=== PATIENT | male | born 1955 | race Caucasian/White ===

== ENCOUNTER 2018-04-01 12:10 | Observation (INO) | payer OTHER ==
[2018-04-01 12:50] LABS: PLATELET COUNT 166 10^3/uL (150-400)
[2018-04-01] MEDS ORDERED: ASPIRIN 81 MG CHEWABLE TAB PO ONE (13:04)
--- NOTE | 2018-04-01 13:05 | EDPHY ---
H & P Time Seen by Provider: 04/01/18 12:36 HPI/ROS: CHIEF COMPLAINT: Chest pain HISTORY OF PRESENT ILLNESS: 62-year-old man presents with his daughter who is nurse practitioner [place]. He has a history of hypertension hypercholesterolemia and a TIA. He tells me that when he was under anesthesia to get a cortisone injection in his neck he was told he might have had a silent heart attack in the past. He works up here in [place] although he lives down in [facility]. Today around 11:00 a.m. He started having left-sided chest discomfort which she describes as"not dull or sharp, but more of a throbbing sensation. It lasted for about half an hour and then went away. It was not associated with shortness of breath or radiation or dyspnea or sweating. Currently not present. REVIEW OF SYSTEMS: Eye: no change in vision ENT: no sore throat Cardiac: HPI Pulmonary: no cough or SOB Abdomen: no vomiting, diarrhea, abdominal pain Musculoskeletal: no back pain or leg swelling Skin: no rash Neuro: no headache Constitutional: no fever : no urinary symptoms A comprehensive 10 point review of systems is otherwise negative aside from elements mentioned in the history of present illness. PAST MEDICAL HISTORY: As in HPI. Hypertension, hyperlipidemia, TIA Family history: Negative for venous thromboembolism, mother at a young age from unclear reason. Social history: Nonsmoker, no recent travel or immobilization. General Appearance: Alert and conversant, cooperative. Eyes: No scleral icterus. ENT, Mouth: Normal mucous membranes. Respiratory: Normal respiratory effort, breath sounds equal, lungs are clear to auscultation. Cardiovascular: Regular rate and rhythm. No murmur. Gastrointestinal: Abdomen is soft and non tender. Neurological: Alert, face symmetric, normal motor and sensory in extremities. Skin: Warm and dry, no rashes. Musculoskeletal: No calf tenderness. No peripheral edema. Psychiatric: Not agitated. Emergency Department course/MDM: Patient's EKG shows right bundle branch block but no acute ST changes. Oral aspirin. Differential diagnosis considered for chest pain including but not limited to myocardial ischemia, aortic dissection, pericarditis, pulmonary embolus, chest wall pain, pleural inflammation and pulmonary infectious causes. I think pulmonary embolism would be very unlikely given his symptoms. He is at least 4 points on the heart score, not low risk. Discussed admission for serial troponin and risk stratification, patient and daughter are in agreement. Smoking Status: Never smoked Constitutional: Initial Vital Signs Temperature (C) 36.5 C 04/01/18 12:14 Heart Rate 96 04/01/18 12:14 Respiratory Rate 16 04/01/18 12:14 Blood Pressure 140/94 H 04/01/18 12:14 O2 Sat (%) 94 04/01/18 12:14 O2 Delivery Mode Room Air Allergies/Adverse Reactions: No Known Allergies Allergy (Unverified 04/01/18 12:16) Home Medications: Medication Instructions Recorded Lisinopril 04/01/18 SIMVASTATIN 04/01/18 Medical Decision Making - Diagnostics EKG Interpretation: 12-lead EKG interpreted by me; official reading is in computer system. My interpretation is sinus rhythm with right bundle branch block rate 81 no ischemic changes. Imaging Results: Imaging Impressions Chest X-Ray 04/01/18 13:04 Impression: Limited hypoventilatory chest with no acute findings. Imaging: I viewed and interpreted images myself Consult/Admit Bed Type: [facility] for [facility] - Data Points Laboratory Results: Laboratory Results 04/01/18 12:29 04/01/18 12:29 04/01/18 04/01/18 04/01/18 12:33 12:29 12:29 WBC 5.98 10^3/uL 10^3/uL (3.80-9.50) RBC 5.54 10^6/uL 10^6/uL (4.40-6.38) Hgb 17.6 g/dL H g/dL (13.7-17.5) Hct 51.5 % H % (40.0-51.0) MCV 93.0 fL fL (81.5-99.8) MCH 31.8 pg pg (27.9-34.1) MCHC 34.2 g/dL g/dL (32.4-36.7) RDW 12.7 % % (11.5-15.2) Plt Count 166 10^3/uL 10^3/uL (150-400) MPV 8.8 fL fL (8.7-11.7) Neut % (Auto) 53.2 % % (39.3-74.2) Lymph % (Auto) 29.6 % % (15.0-45.0) [place] % (Auto) 11.5 % % (4.5-13.0) Eos % (Auto) 4.5 % % (0.6-7.6) Baso % (Auto) 0.7 % % (0.3-1.7) Nucleat RBC Rel Count 0.0 % % (0.0-0.2) Absolute Neuts (auto) 3.18 10^3/uL 10^3/uL (1.70-6.50) Absolute Lymphs (auto) 1.77 10^3/uL 10^3/uL (1.00-3.00) Absolute Monos (auto) 0.69 10^3/uL 10^3/uL (0.30-0.80) Absolute Eos (auto) 0.27 10^3/uL 10^3/uL (0.03-0.40) Absolute Basos (auto) 0.04 10^3/uL 10^3/uL (0.02-0.10) Absolute Nucleated RBC 0.00 10^3/uL 10^3/uL (0-0.01) Immature Gran % 0.5 % % (0.0-1.1) Immature Gran # 0.03 10^3/uL 10^3/uL (0.00-0.10) Sodium 135 mEq/L mEq/L (135-145) Potassium 4.1 mEq/L mEq/L (3.5-5.2) Chloride 107 mEq/L mEq/L (97-110) Carbon Dioxide 23 mEq/l mEq/l (22-31) Anion Gap 5 mEq/L L mEq/L (6-14) BUN 25 mg/dL H mg/dL (7-23) Creatinine 0.8 mg/dL mg/dL (0.7-1.3) Estimated GFR > 60 Glucose 103 mg/dL H mg/dL (70-100) Calcium 8.9 mg/dL mg/dL (8.5-10.4) POC Troponin I 0.00 ng/mL ng/mL (0.00-0.08) Medications Given: Discontinued Medications Aspirin (Aspirin) 324 mg PO EDNOW ONE Stop: 04/01/18 13:05 Last Admin: 04/01/18 13:24 Dose: 324 mg Point of Care Test Results: Chemistry 01/03/19 12:33 POC Troponin I 0.00 ng/mL ng/mL (0.00-0.08) Departure - Departure Disposition: [facility] Inpatient Acute Clinical Impression: Chest pain Qualifiers: Chest pain type: unspecified Qualified Code(s): R07.9 - Chest pain, unspecified Condition: Good Referrals: CIELO OLIVER [Primary Care Provider] - As per Instructions
--- NOTE | 2018-04-01 13:07 | CPEKG ---
Test Reason : OPEN Blood Pressure : / mmHG Vent. Rate : 081 BPM Atrial Rate : 081 BPM P-R Int : 150 ms QRS Dur : 149 ms QT Int : 392 ms P-R-T Axes : 043 -59 -03 degrees QTc Int : 455 ms Sinus rhythm Right bundle branch block Confirmed by Jason Gentile ([id number]) on 04/01/2018 1:07:03 PM Referred By: Confirmed By:Jason Gentile
[2018-04-01] MEDS ORDERED: NITROGLYCERIN 0.4 MG BTL SL PRN (14:18)
[2018-04-01] MEDS ORDERED: ONDANSETRON DISINTEGRATING 4 MG TAB PO PRN (14:18)
[2018-04-01] MEDS ORDERED: ACETAMINOPHEN 325 MG TAB PO PRN (14:18)
--- NOTE | 2018-04-01 14:27 | PDGENHP ---
History and Physical - Chief Complaint chest pain - History of Present Illness Billy Alvarez is a 62 year old male with pmh of HTN, HLD, TIA who presented with chest pain which started earlier in the day. He says that he was at work, looking at some construction drawings and had an acute onset of left sided chest pain. Pain was an ache, and persisted for about 30 minutes and then resolved. Nothing seemed to make the pain better or worse and it resolved spontaneously. He discussed his symptoms with his daughter who is a SUPERVISOR [employer]WORK[employer] and told him to come to the ER. He had no shortness of breath, fevers, cough, NV, sweatiness. the pain did not radiate. Currently chest pain free. History Information - Allergies/Home Medication List Allergies/Adverse Reactions: No Known Allergies Allergy (Verified 04/01/18 13:42) Home Medications: Ascorbic Acid [Vitamin C 500 mg (*)] 500 mg PO DAILY 04/01/18 [Last Taken ] Aspirin [Aspirin 81mg (*)] 81 mg PO DAILY 04/01/18 [Last Taken 04/01/18] Cholecalciferol Vit D3 [Vitamin D3 (*)] 1,000 units PO DAILY 04/01/18 [Last Taken 04/01/18] Cyclobenzaprine [Flexeril 10 MG (*)] 10 mg PO TID PRN 04/01/18 [Last Taken Unknown] Diclofenac Sodium [Voltaren 50 MG (*)] 50 mg PO Q2D 04/01/18 [Last Taken ] Gabapentin [Neurontin 300 MG (*)] 300 mg PO DAILY 04/01/18 [Last Taken 04/01/18] Glucosamine Sulfate [Glucosamine Sulfate 500 MG (*)] 500 mg PO DAILY 04/01/18 [ Last Taken 04/01/18] Herbals/Supplements -Info Only 1 ea PO DAILY 04/01/18 [Last Taken Unknown] Lisinopril/Hydrochlorothiazide [Zestoretic 20-25 mg Tablet] 1 each PO DAILY 06/15 [Last Taken 04/01/18] Magnesium Oxide [Magnesium Oxide 400 mg (*)] 400 mg PO DAILY 04/01/18 [Last Taken 04/01/18] Multivitamins [Multivitamin (*)] 1 each PO DAILY 04/01/18 [Last Taken 04/01/18] Naproxen Sodium [Aleve 220 MG (*)] 440 mg PO Q2D 04/01/18 [Last Taken 03/30/18] Pantoprazole Sodium [Protonix 40mg (*)] 40 mg PO DAILY 04/01/18 [Last Taken 06/15] Simvastatin [Zocor] 20 mg PO DAILY 04/01/18 [Last Taken 04/01/18] Vitamin B Complex [Vitamin B Complex (OTC)] 1 mg PO DAILY 04/01/18 [Last Taken 04/01/18] amLODIPine BESYLATE [Norvasc 5 mg (*)] 5 mg PO DAILY 04/01/18 [Last Taken ] I have personally reviewed and updated: family history, medical history, social history, surgical history - Past Medical History hypertension, hyperlipidemia, TIA - Surgical History Reports: no pertinent surgical hx - Family History Positive for: stroke - Social History Smoking Status: Never smoked Alcohol Use: Occasionally Drug Use: None Review of Systems Review of Systems: ROS: 10pt was reviewed & negative except for what was stated in HPI & below Physical Exam Physical Exam: Temp Pulse Resp BP Pulse Ox 36.5 C 89 18 148/97 H 94 04/01/18 12:14 04/01/18 14:00 04/01/18 14:00 04/01/18 14:00 04/01/18 14:00 Constitutional: no apparent distress, appears nourished, not in pain Eyes: PERRL, anicteric sclera, EOMI Ears, Nose, Mouth, Throat: moist mucous membranes, hearing normal, ears appear normal, no oral mucosal ulcers Cardiovascular: regular rate and rhythym, no murmur, rub, or gallop, No edema Respiratory: no respiratory distress, no rales or rhonchi, clear to auscultation Gastrointestinal: normoactive bowel sounds, soft, non-tender abdomen, no palpable masses Genitourinary: no bladder fullness, no bladder tenderness Skin: warm, normal color, no rashes or abrasions, no fluctuance, no induration, No mottled Musculoskeletal: full muscle strength, no muscle tenderness, normal joint ROM, no joint effusions Psychiatric: interacting appropriately, not anxious, not encephalopathic, thought process linear Lymph, Heme, Immunologic: no cervical LAD, no supraclavicular LAD Lab Data & Imaging Review 04/01/18 12:29 04/01/18 12:29 WBC 5.98 10^3/uL (3.80-9.50) 04/01/18 12:29 RBC 5.54 10^6/uL (4.40-6.38) 04/01/18 12:29 Hgb 17.6 g/dL (13.7-17.5) H 04/01/18 12:29 Hct 51.5 % (40.0-51.0) H 04/01/18 12:29 MCV 93.0 fL (81.5-99.8) 04/01/18 12:29 MCH 31.8 pg (27.9-34.1) 04/01/18 12:29 MCHC 34.2 g/dL (32.4-36.7) 04/01/18 12:29 RDW 12.7 % (11.5-15.2) 04/01/18 12:29 Plt Count 166 10^3/uL (150-400) 04/01/18 12:29 MPV 8.8 fL (8.7-11.7) 04/01/18 12:29 Neut % (Auto) 53.2 % (39.3-74.2) 04/01/18 12:29 Lymph % (Auto) 29.6 % (15.0-45.0) 04/01/18 12:29 [place] % (Auto) 11.5 % (4.5-13.0) 04/01/18 12:29 Eos % (Auto) 4.5 % (0.6-7.6) 04/01/18 12:29 Baso % (Auto) 0.7 % (0.3-1.7) 04/01/18 12:29 Nucleat RBC Rel Count 0.0 % (0.0-0.2) 04/01/18 12:29 Absolute Neuts (auto) 3.18 10^3/uL (1.70-6.50) 04/01/18 12:29 Absolute Lymphs (auto) 1.77 10^3/uL (1.00-3.00) 04/01/18 12:29 Absolute Monos (auto) 0.69 10^3/uL (0.30-0.80) 04/01/18 12:29 Absolute Eos (auto) 0.27 10^3/uL (0.03-0.40) 04/01/18 12:29 Absolute Basos (auto) 0.04 10^3/uL (0.02-0.10) 04/01/18 12:29 Absolute Nucleated RBC 0.00 10^3/uL (0-0.01) 04/01/18 12:29 Immature Gran % 0.5 % (0.0-1.1) 04/01/18 12:29 Immature Gran # 0.03 10^3/uL (0.00-0.10) 04/01/18 12:29 Sodium 135 mEq/L (135-145) 04/01/18 12:29 Potassium 4.1 mEq/L (3.5-5.2) 04/01/18 12:29 Chloride 107 mEq/L (97-110) 04/01/18 12:29 Carbon Dioxide 23 mEq/l (22-31) 04/01/18 12:29 Anion Gap 5 mEq/L (6-14) L 04/01/18 12:29 BUN 25 mg/dL (7-23) H 04/01/18 12:29 Creatinine 0.8 mg/dL (0.7-1.3) 04/01/18 12:29 Estimated GFR > 60 04/01/18 12:29 Glucose 103 mg/dL (70-100) H 04/01/18 12:29 Calcium 8.9 mg/dL (8.5-10.4) 04/01/18 12:29 POC Troponin I 0.00 ng/mL (0.00-0.08) 04/01/18 12:33 Visualized and Interpreted Chest x-ray results: Yes Assessment & Plan Assessment: Chest pain (Acute)- patients heart score is 4 (HTN, HLD, TIA, and age over 60, also has FH of CVA), which warrants further evaluation. Troponins negative X2, and ECG showing right bundle. Examination is benign. Case discussed with ER physician. -cycle trops Q6 X3 -exercise stress test likely in am -TTE -asa 325, statin HTN- on norvasc, and lisinopril/hctz. cont HLD- cont zocor PPX- SCDs, heparin Fluids- po Lytes- WNL Nutrition- cardiac diet Cor- Full Dispo-observation for chest pain.
[2018-04-01] MEDS ORDERED: MELATONIN 3 MG TAB PO SCH (21:00)
[2018-04-01] MEDS ORDERED: GABAPENTIN 300 MG CAP PO SCH (21:00)
[2018-04-02] MEDS ORDERED: GABAPENTIN 300 MG CAP PO SCH (09:00)
[2018-04-02] MEDS ORDERED: PANTOPRAZOLE SODIUM 40 MG TAB PO SCH (09:00)
[2018-04-02] MEDS ORDERED: amLODIPine BESYLATE 5 MG TAB PO SCH (09:00)
[2018-04-02] MEDS ORDERED: ATORVASTATIN CALCIUM 10 MG TAB PO SCH (09:00)
[2018-04-02] MEDS ORDERED: ASPIRIN 325 MG TAB PO SCH (09:00)
[2018-04-02] MEDS ORDERED: LISINOPRIL/HCTZ 10/12.5 MG 1 EA TAB PO SCH (09:00)
[2018-04-02] MEDS ORDERED: REGADENOSON 0.4 MG/5 ML SYR IVP ONE (11:01)
[2018-04-02 11:52] VITALS: BP 137/102
--- NOTE | 2018-04-02 12:01 | CPR ---
DATE OF PROCEDURE: 04/02/2018 PROCEDURE: Exercise nuclear stress test. INDICATION: The patient is a 62-year-old male with a history of hypertension and hyperlipidemia, who presented to the hospital with left-sided chest pain. 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 He denies any shortness of breath, diaphoresis, or nausea associated with his chest dis comfort. His risk factors for coronary artery disease include hypertension, hyperlipidemia, and a fa sammie history of premature coronary artery disease. His mother had a fatal MD at the age of 49. PROCEDURE IN DETAIL: Consent was obtained and the patient was placed on continuous telemetry. His r esting EKG revealed normal sinus rhythm with a right bundle branch block and left anterior fascicular block. There was also T-wave changes in the anterior leads. The patient walked on the treadmill fo r approximately 3-1/2 minutes. The exercise portion of the study was discontinued secondary to it be coming unsafe. He was uncomfortable on the treadmill. He was transitioned to Lexiscan. He was infu sed with Lexiscan and complained of some mild nausea. He remained in normal sinus rhythm with rare P VCs throughout the study. His T-wave inversion persisted in the anterior leads throughout the study. His blood pressure at rest was 112/70 and peaked at 158/80. His blood pressure returned to baselin e 3 minutes into recovery phase. PLAN: Await nuclear images. /[id number]/MODL
--- NOTE | 2018-04-02 12:37 | ASMTCMCOM ---
CM Note CM Note Notes: Pts case discussed in tx rounds. Pt is a 62 y/o man admitted for chest pain. Pt will most likely d/c independent when medically stable. No therapies ordered at this time. CM available for changes. Plan: Independent Date Signed: 04/02/2018 12:36 PM Electronically Signed By:ALYSHA Brothers
--- NOTE | 2018-04-03 10:42 | PDDCSUM ---
Discharge Summary Discharge Summary: Patient is a 62-year-old male with past medical history of TIA hypertension hyperlipidemia who was admitted with an acute onset of chest pain. EKG showed right bundle-branch block with T-wave inversions. Troponins remained negative x3. Patient was originally scheduled for an exercise treadmill test but this was abandoned due to poor tolerance. He ended up completing a Lexiscan with myocardial perfusion imaging. Stress test was negative for any inducible ischemia. All labs remained within normal limits. On the day of discharge patient was in good condition with no further chest pain. He was discharged home to follow up with his primary care provider. Discharge diagnosis Chest pain Hypertension Hyperlipidemia History of TIA
--- NOTE | 2018-04-04 08:43 | CPEKG ---
Test Reason : OPEN Blood Pressure : / mmHG Vent. Rate : 086 BPM Atrial Rate : 086 BPM P-R Int : 149 ms QRS Dur : 146 ms QT Int : 392 ms P-R-T Axes : 044 -78 000 degrees QTc Int : 469 ms Sinus rhythm Right bundle branch block Confirmed by Nirav Patel ([id number]) on 04/04/2018 8:42:43 AM Referred By: Confirmed By:Nirav Patel
== END 2018-04-02 14:24 | disposition home or self-care (01) ==
LOC: F2W 14:35
PROVIDERS: ADMIT Internal Medicine; ATTEND Internal Medicine
DX: R07.9 Chest pain, unspecified (principal); I10 Essential (primary) hypertension; E78.5 Hyperlipidemia, unspecified; Z86.73 Personal history of transient ischemic attack (TIA), and cerebral infarction without residual deficits; Z82.49 Family history of ischemic heart disease and other diseases of the circulatory system
CPT/HCPCS: 71046; 78452; 93005; 93017; A9500; G0378; 84484-ER; J2785